=== PATIENT | male | born 1940 | race Caucasian/White ===

== ENCOUNTER → 2016-11-18 | Outpatient (CLI) | payer MEDICARE ==
[~2016-11-18] MED LIST: ASPI81TA82 PO; CARV3.125 PO; COUM5TAB PO; DIOV320T PO; PIOG30 PO; ZOCO40TA PO
[2016-11-18 10:19] LABS: BLOOD GAS BASE EXCESS -2.6 mmol/L (-2-2); BLOOD GAS CARBOXYHEMOGLOBIN 2.3 % (0-4); BLOOD GAS HCO3 21 mmol/L (22-26); BLOOD GAS METHEMOGLOBIN 1.1 % (0-2); BLOOD GAS O2 HGB SATURATION 89 % (90-100); BLOOD GAS OXYGEN CONTENT 13.5 Vol % (12.0-20.0); BLOOD GAS PCO2 32 mmHg (38-42); BLOOD GAS PO2 66 mmHg (61-120); BLOOD GAS TOTAL HGB 10.8 G/DL (12.0-16.0); CRITICAL VALUE YES; DRAW SITE RT RADIAL; FIO2 21 %; NUMBER OF ARTERIAL PUNCTURES 1; STAT NO; TEMP CORR TO 98.6; ULNAR PULSE PRESENT
--- NOTE | 2016-11-23 09:55 | RSPPFT ---
DATE OF PROCEDURE: 11/18/16 COMMENTS: Spirometry shows FVC of 2.5 at 56% of predicted, FEV1 of 1.7 at 60%, FEV1/FVC ratio is decreased. Flow is decreased at FEF 50, FEF 25, FEF 75 and FEF 25-75. There is a mild response after bronchodilator treatment. Lung volumes show residual volume is normal. TLC is normal. Diffusion capacity is decreased. Flow volume loop indicates an obstructive pattern. Room air arterial blood gases show pH of 7.43, PCO2 of 32, PO2 of 66, BiCarb of 21 and O2 Saturation at 89%. 6-minute walk test shows de-saturation. IMPRESSION: 1. Moderately severe obstructive lung disease. 2. Mild response after bronchodilator treatment. 3. Lung volumes are normal. 4. Moderate loss in diffusion capacity. 5. Room air arterial blood gases show hypoxia. 6. De-saturation shown of 6-minute walk test.
== END ==
LOC: HRSP 09:57
PROVIDERS: ATTEND Specialist
DX: J44.9 Chronic obstructive pulmonary disease, unspecified (principal)
CPT/HCPCS: 36600; 82805; 94060; 94620; 94726; 94729